=== PATIENT | male | born 1990 | race Caucasian/White ===

== ENCOUNTER 2017-02-17 22:40 | Emergency (ER) | payer SELFPAY ==
[~2017-02-17] VITALS: Ht 175.3 cm; Wt 70.0 kg
[~2017-02-17 22:40] MED LIST: TRAM50 PO; Z.0.NO CURRENT MEDS
[2017-02-17 22:46] VITALS: BP 170/86; PULSE 101; RESP 17; TEMP 98; O2SAT 98
== END 2017-02-17 23:27 | disposition left against medical advice (07) ==
LOC: NEPD 22:40
DX: M79.672 Pain in left foot (principal); Z53.21 Procedure and treatment not carried out due to patient leaving prior to being seen by health care provider
CPT/HCPCS: 99281